=== PATIENT | female | born 1940 | race Caucasian/White ===

== ENCOUNTER 2016-10-20 11:59 | Emergency (ER) | payer MEDICARE, OTHER ==
[~2016-10-20] VITALS: Ht 160 cm; Wt 80.1 kg
[2016-10-20 12:00] VITALS: Ht 160 cm; Wt 80.1 kg
[2016-10-20] MEDS ORDERED: CARV12.579 PO (12:43)
[2016-10-20] MEDS ORDERED: LEVO88TA42 PO (12:44)
[2016-10-20] MEDS ORDERED: AMLO-147 PO (12:44)
[2016-10-20] MEDS ORDERED: VALS1TAB82 PO (12:44)
[2016-10-20] MEDS ORDERED: FENO48TA4 PO (12:45)
[2016-10-20] MEDS ORDERED: ROSU40TA35 PO (12:45)
[2016-10-20] MEDS ORDERED: ASPI81TA16 PO (12:46)
[2016-10-20] MEDS ORDERED: PANT40TA3 PO (12:46)
[2016-10-20 12:47] LABS: ADD SCAN DIFF NO
[2016-10-20] MEDS ORDERED: ALLO100T PO (12:47)
[2016-10-20] MEDS ORDERED: GUAN1TAB15 PO (12:47)
[2016-10-20] MEDS ORDERED: CALC0.255 PO (12:47)
[2016-10-20] MEDS ORDERED: FURO-109 PO (12:48)
[2016-10-20 12:52] LABS: BASOPHIL # 0.1 10^3/ul (0.0-0.1); BASOPHILS % 0.9 % (0.0-2.0); EOSINOPHILS # 0.2 10^3/ul (0.0-0.5); EOSINOPHILS % 3.4 % (0.0-7.0); HEMATOCRIT 31.1 % (37.0-47.0); LYMPHOCYTES % 18.4 % (15.0-51.0); MEAN CORPUSCULAR HEMOGLOBIN 30.4 pg (29.0-33.0); MEAN CORPUSCULAR HGB CONC 32.2 g/dl (32.0-37.0); MEAN CORPUSCULAR VOLUME 94.5 fl (82.0-101.0); MEAN PLATELET VOLUME 10.7 fl (7.4-10.4); MONOCYTE # 0.5 10^3/ul (0.3-0.9); MONOCYTES % 10.1 % (0.0-11.0); NEUTROPHIL # 3.6 10^3/ul (1.6-7.5); NEUTROPHILS % 66.8 % (39.0-77.0); PLATELET COUNT 272 10^3/UL (140-415); RED BLOOD COUNT 3.29 10^6/ul (4.20-5.40); RED CELL DISTRIBUTION WIDTH 14.7 % (11.5-14.5); WHITE BLOOD COUNT 5.3 10^3/ul (4.8-10.8)
[2016-10-20] MEDS ORDERED: OMEG500C3 PO (12:52)
[2016-10-20] MEDS ORDERED: LACT1CAP56 PO (12:52)
[2016-10-20] MEDS ORDERED: NEPH PO (12:52)
[2016-10-20] MEDS ORDERED: FER325 PO (12:53)
[2016-10-20 12:59] LABS: INR 0.96; PROTIME 12.8 Sec (12.2-14.2)
[2016-10-20 13:07] LABS: ALBUMIN 4.3 g/dl (3.3-4.9)
[2016-10-20 13:08] LABS: CHLORIDE 105 mmol/L (97-110); POTASSIUM 4.8 mmol/L (3.5-5.1); SODIUM 144 mmol/L (135-144)
[2016-10-20 13:10] LABS: ALBUMIN/GLOBULIN RATIO 1.04; ALKALINE PHOSPHATASE 37 IU/L (42-121); ANION GAP 22 (8-16); ASPARTATE AMINO TRANSFERASE 32 IU/L (15-46); BLOOD UREA NITROGEN 96 mg/dl (7-20); CARBON DIOXIDE 22 mmol/L (21-31); CREATININE 3.99 mg/dl (0.44-1.00); TOTAL PROTEIN 8.4 g/dl (6.1-8.1)
[2016-10-20 13:11] LABS: ALANINE AMINOTRANSFERASE 35 IU/L (13-69); CALCIUM 10.6 mg/dl (8.4-10.2); CREATINE KINASE 328 IU/L (23-200); GLUCOSE 91 mg/dl (70-220)
[2016-10-20 13:18] LABS: B-TYPE NATRIURETIC PEPTIDE 172 PG/ML (0-450)
[2016-10-20 13:37] LABS: TROPONIN-I < 0.012 ng/ml (0.00-0.12)
[2016-10-20 13:45] LABS: CK-MB 5.93 ng/ml (0.0-2.4)
--- NOTE | 2016-10-20 14:09 | RADRPT ---
PROCEDURE: XR Chest. CLINICAL INDICATION: Chest pain TECHNIQUE: Single frontal view of the chest was obtained. COMPARISON: None FINDINGS: The heart is within normal limits. The thoracic aorta is calcified. There is mild left mid lung linear atelectasis. The lungs are otherwise clear. There is no pleural effusion or pneumothorax. RPTAT: AA IMPRESSION: No acute disease. Calcified aorta consistent with atherosclerotic disease. .Driss Rose MD, MD Date Time Electronically viewed and signed by .Driss Rose MD, on 10/20/2016 14:09 .S/
--- NOTE | 2016-10-20 14:10 | ERD ---
ER Documentation Chief Complaint Date/Time DATE: 10/20/16 TIME: 14:05 Chief Complaint SENT BY MD CALIX FOR HIGH K+ HPI This is a very pleasant 76-year-old female with a known history of chronic kidney disease stage III who is currently in a trial for various medication she has been taking for anemia. Therefore the patient receives scheduled outpatient laboratory work which was performed most recently on September 14, 2016 , 7 days prior to arrival. The patient was reported to have an elevated potassium of 7.0. This was relayed to her primary care physician Dr. Calix who instructed the patient to immediately come to the emergency department to be reevaluated. The patient denies any frequency urgency or dysuria. She denies any chest pain or pressure that radiates to the neck arm back or jaw. She states she is very diligent about monitoring her oral potassium intake and indicates she has had no recent changes in diet. She denies any shortness of breath at rest or exertion. She denies any difficulty breathing. She has no swelling of her lower extremities. She has no headache ROS All systems reviewed and are negative except as per history of present illness. Medications Home Meds Reported Medications Ferrous Sulfate* (Ferrous Sulfate*) 325 Mg Tabec, 325 MG PO DAILY, TAB 10/20/16 Multivit/Ca Carb/B Cmplx/Fa* (Lashanda-Diane*) 1 Tab Tab, 1 TAB PO DAILY, TAB 10/20/16 [place]-3 Fatty Acids (Fish Oil) 500 Mg Capsule, 500 MG PO DAILY, CAP 10/20/16 Lactobacillus Combo No.11 (Probiotic) 1 Each Cap.sprink, 1 CAP PO DAILY, CAP 10/20/16 Furosemide* (Lasix*) 40 Mg Tablet, 40 MG PO DAILY, TAB 10/20/16 Allopurinol* (Allopurinol*) 100 Mg Tablet, 100 MG PO BID, TAB 10/20/16 Guanfacine Hcl* (Tenex*) 1 Mg Tablet, 1 MG PO HS, TAB 10/20/16 Calcitriol* (Rocaltrol*) 0.25 Mcg Capsule, 0.25 MCG PO THREE TIMES A WEEK, CAP 10/20/16 Aspirin (LOW DOSE ASPIRIN EC) 81 Mg Tablet.dr, 81 MG PO DAILY, #30 TAB 10/20/16 Pantoprazole* (Protonix*) 40 Mg Tablet.dr, 40 MG PO DAILY, TAB 10/20/16 Fenofibrate Nanocrystallized* (Fenofibrate*) 48 Mg Tablet, 48 MG PO DAILY, TAB 10/20/16 Rosuvastatin Calcium* (Crestor*) 40 Mg Tablet, 40 MG PO QHS, #30 TAB 10/20/16 Levothyroxine Sodium* (Levoxyl*) 88 Mcg Tablet, 88 MCG PO BEFORE BREAKFAST, #30 TAB 10/20/16 Amlodipine Besylate* (Amlodipine Besylate*) 10 Mg Tablet, 15 MG PO BID, #30 TAB 10/20/16 Valsartan-Hydrochlorothiazide (Valsartan-HCTZ) 320-25 Mg Tablet, 1 TAB PO DAILY , #30 TAB 10/20/16 Carvedilol* (Carvedilol*) 12.5 Mg Tablet, 12.5 MG PO BID, #60 TAB 10/20/16 Allergies Allergies: Coded Allergies: No Known Allergy (Unverified , 10/20/16) PMhx/Soc Medical and Surgical Hx: pt denies Surgical Hx Hx Alcohol Use: No Hx Tobacco Use: No Smoking Status: Never smoker Physical Exam Vitals Vital Signs Date Time Temp Pulse Resp B/P Pulse Ox O2 Delivery O2 Flow Rate FiO2 10/20/16 13:03 46 20 108/94 99 Room Air 10/20/16 12:30 Nasal Cannula 2 10/20/16 12:00 97.8 47 18 145/67 98 Physical Exam Constitutional:Well-developed. Well-nourished. HEENT:Normocephalic. Atraumatic.Pupils were equal round reactive to light. Moist mucous membranes.No tonsillar exudates. Neck: No nuchal rigidity. No lymphadenopathy. No posterior cervical spine tenderness or step-offs. Respiratory: Not using accessory muscles of respiration.Lungs were clear to auscultation bilaterally. No rhonchi. No rales. No wheezing. Cardiovascular: Regular rate regular rhythm.No murmurs. No rubs were appreciated.S1, S2 normal. Distal pulses are palpable 2+ bilaterally. GI: Abdomen was soft. Nontender. Non Distended. No pulsatile abdominal masses or bruits. No rebound. No guarding. Bowel sounds were present and normal. Muscle skeletal: Full range of motion of both the upper and lower extremities bilaterally.Normal muscle tone.No assymetrical calf tenderness or swelling. Skin: No petechia, no purpura. No lesions on the palms or the soles of the feet. No maculopapular rash. NEURO: Patient was alert, awake, orientated x3.No facial droop. Gait observed and normal with no ataxia.Speech had regular rate and rhythm. No focal neurological deficits. Result Diagram: 10/20/16 1230 10/20/16 1230 Results 24 hrs Laboratory Tests Test 10/20/16 12:30 Activated Partial Thromboplast Time 29.0Sec Alanine Aminotransferase (ALT/SGPT) 35IU/L Albumin 4.3g/dl Albumin/Globulin Ratio 1.04 Alkaline Phosphatase 37IU/L Anion Gap 22 Aspartate Amino Transf (AST/SGOT) 32IU/L B-Type Natriuretic Peptide 172PG/ML Basophils # 0.110^3/ul Basophils % 0.9% Blood Urea Nitrogen 96mg/dl Calcium Level 10.6mg/dl Carbon Dioxide Level 22mmol/L Chloride Level 105mmol/L Creatine Kinase 328IU/L Creatine Kinase Index 1.8 Creatinine 3.99mg/dl Creatinine Kinase MB (Mass) 5.93ng/ml Direct Bilirubin 0.00mg/dl Eosinophils # 0.210^3/ul Eosinophils % 3.4% Globulin 4.10g/dl Glucose Level 91mg/dl Hematocrit 31.1% Hemoglobin 10.0g/dl INR International Normalized Ratio 0.96 Indirect Bilirubin 0.0mg/dl Lymphocytes # 1.010^3/ul Lymphocytes % 18.4% Mean Corpuscular Hemoglobin 30.4pg Mean Corpuscular Hemoglobin Concent 32.2g/dl Mean Corpuscular Volume 94.5fl Mean Platelet Volume 10.7fl Monocytes # 0.510^3/ul Monocytes % 10.1% Neutrophils # 3.610^3/ul Neutrophils % 66.8% Nucleated Red Blood Cells # 0.010^3/ul Nucleated Red Blood Cells % 0.0/100WBC Platelet Count 60969^3/UL Potassium Level 4.8mmol/L Prothrombin Time 12.8Sec Prothrombin Time Ratio 1.0 Red Blood Count 3.2910^6/ul Red Cell Distribution Width 14.7% Sodium Level 144mmol/L Total Bilirubin 0.0mg/dl Total Protein 8.4g/dl Troponin I < 0.012ng/ml White Blood Count 5.310^3/ul Procedures/MDM This patient presented to the emergency department for reevaluation from a recent lab draw on September 14 and indicated the patient was hyperkalemic. The patient has known history of chronic kidney disease stage III and had presented with the ancillary laboratory work results from [facility]. The collection date was on September 14 and indicated that the patient's BUN was 84 and creatinine was 3.42. On the lab work the patient's potassium was 4.6 however the patient received a call stating that her potassium was 7. I spoke with Dr. Calix and he indicated that this could have been an accidental air as today the patient's potassium was normal at 4.0. A chest radiograph was performed by myself today and there was no evidence of pulmonary vascular congestion or pulmonary edema. The patient's renal function had slightly worsened, this was discussed with Dr. mcleod and he did indicate to inform the patient hold her Lasix, and to follow-up on an outpatient basis with her schedule appointment with Dr. Calix. 12 Lead EKG tracing ordered and reviewed by myself showed: Sinus bradycardia 48 bpm and no arrhythmia. LA interval prolonged at 210 ms with a first-degree AV block QRS duration normal. No ST segment elevation No ST segment depression. No changes consistent with acute ischemia. No peaked T waves to suggest severe hyperkalemia The patient was discharged home in fair condition. They were instructed to return to the emergency department at any time if there was any worsening of their condition. The patient stated they would follow up with their PCP in the next 24-48 hours to initiate a suitable medication regimen under the care of their PCP as well as to allow their PCP to monitor any drug reactions. The patient was discharged home with prescriptions after they gave informed consent to the new medication. They were also fully informed by myself on the adverse effects and adverse drug interactions in order to provide adequate safeguards to prevent possible adverse reactions to medications. Departure Diagnosis: Primary Impression: Encounter for laboratory test Additional Impression: Chronic kidney disease Chronic kidney disease stage: stage 3 (moderate) Qualified Code: N18.3 - Chronic kidney disease, stage 3 (moderate) Condition: Fair NACHOGUERITA Oct 20, 2016 14:10
[2016-10-20 14:30] VITALS: BP 112/88; PULSE 48; RESP 20
[2016-10-20 14:45] LABS: ADD UMIC YES; URINE BILIRUBIN (Dip) NEGATIVE (NEGATIVE); URINE BLOOD (Dip) TRACE (NEGATIVE); URINE COLOR LT. YELLOW (YELLOW); URINE GLUCOSE (Dip) NEGATIVE (NEGATIVE); URINE KETONES (Dip) NEGATIVE (NEGATIVE); URINE LEUKOCYTE ESTERASE (Dip) 2+ (NEGATIVE); URINE NITRITE (Dip) NEGATIVE (NEGATIVE); URINE TOTAL PROTEIN (Dip) 2+ (NEGATIVE); URINE UROBILINOGEN (Dip) 0.2 E.U./dL (0.1-1.0)
[2016-10-20 14:59] LABS: SQUAMOUS EPITHELIAL CELL,UR FEW; URINE RBCS 0-2 /HPF (0)
== END 2016-10-20 14:30 | disposition home or self-care (01) ==
LOC: E/R 11:59
DX: N18.3 Chronic kidney disease, stage 3 (moderate) (principal); I12.9 Hypertensive chronic kidney disease with stage 1 through stage 4 chronic kidney disease, or unspecified chronic kidney disease; R40.2142 Coma scale, eyes open, spontaneous, at arrival to emergency department; R40.2252 Coma scale, best verbal response, oriented, at arrival to emergency department; R40.2362 Coma scale, best motor response, obeys commands, at arrival to emergency department; R07.9 Chest pain, unspecified; Z00.00 Encounter for general adult medical examination without abnormal findings; Z79.82 Long term (current) use of aspirin
CPT/HCPCS: 36415; 71010; 80053; 81001; 81003; 82550; 82553; 83880; 84484; 85025; 85610; 85730; 87086; 93005